=== PATIENT | female | born 1995 | race Caucasian/White ===

== ENCOUNTER 2018-07-09 23:38 | Inpatient (IN) | payer BC, OTHER ==
[~2018-07-09 23:38] MED LIST: Bupivacaine 0.25% 10 ML SDV ONE; Lidocaine 1.5% with EPINEPHrine 1:200,000 5 ML Amp ONE
--- NOTE | 2018-07-10 01:16 | PCM.LDHP ---
L&D History of Present Illness - General Date of Service: 07/10/18 Admit Problem/Dx: Patient Status Order with Admit Dx/Problem 07/10/18 00:08 Patient Status [ADT] Routine Admission Diagnosis/Problem Admission Diagnosis/Problem Gestational hypertension Source of Information: Patient History Limitations: Reports: No Limitations - History of Present Illness Introduction:: Clara Peña is a 23-year-old at 38 weeks 1 day by LMP consistent with early ultrasound who presented for concerns about elevated blood pressures at home. She reports that when she was checking them they weren't to the 140s to 150s/80s to 90s throughout the day. She denies any headaches or vision changes. She denies any spots in her vision. She reports that she has been having some upper abdominal pain that felt like heartburn but did not improve with use of Tums. She was taken to the Tylenol for this pain. She feels like it after she arrived to the hospital for evaluation she started to have some cramping pain. She denies any contractions or pelvic pain prior to arrival to the hospital. She thinks that she may have lost some of her mucous plug earlier today but denies any abnormal vaginal discharge or vaginal bleeding. She reports good movement. She was diagnosed with a urinary tract infection and 07/06/2018 and was started on Macrobid. She took her last dose of Macrobid in the evening of 07/09/2018. Timing/Duration: Reports: gradual onset (Cramping pain while she is in the hospital), intermittent (Elevated blood pressures at home) Location, : Reports: Pelvic Quality: Reports: Pressure Severity: Mild Improves with: Reports: None Worsens with: Reports: None Associated Symptoms: Denies: vaginal bleeding, vaginal discharge, vaginal fluid Present Illness Comments:: Clara Peña is a 23-year-old at 38 weeks 1 day by LMP consistent with early ultrasound who is had routine care with Dr. Ruffin starting at 21 weeks gestational age. Prior to that she had routine care in [place] starting at 10 weeks gestational age. She denies any significant problems with the but did have some concerns about possible large in the 97th to the 98th percentile on ultrasounds that were done in early June. labs Blood type: A+ Antibody screen: Negative First trimester hematocrit/hemoglobin: 37.5%/12.8 Platelets: 279 Pap smear: Negative Urine culture: Escherichia coli UTI on 01/23/2018 and treated Rubella status: Immune Hepatitis B surface antigen: [Negative] RPR: [Negative] HIV: [Negative] Gonorrhea: [Negative] Chlamydia: [Negative] Anatomy ultrasound: Normal ultrasound, anterior placenta One hour glucose tolerance test: 159 Second trimester hematocrit/hemoglobin: 34.7/11.6 Platelets: 324 Three-hour glucose tolerance test: Fasting 111, 1 hour 131, 2 hour 88, 3 hour 81 GBS status: Negative Her has been complicated by: * Gestational hypertension diagnosed at today's OB evaluation * Migraine headaches in * Possible macrosomia with measuring in the 97th to the 98th percentile on recent ultrasounds with most recent ultrasound done on 06/27/2018 measuring 3374 g (60th percentile) * Obesity [] - Related Data Allergies/Adverse Reactions: Allergies Allergy/AdvReac Type Severity Reaction Status Date / Time No Known Allergies Allergy Verified 07/09/18 23:49 Home Medications: Home Meds Ferrous Sulfate [Iron] 325 mg PO DAILY 07/09/18 [History] Pnv No.122/Iron/Folic Acid [ Multi Tablet] 1 each PO DAILY 07/09/18 [ History] Past Medical History HEENT History: Reports: None Gastrointestinal History: Reports: Other (See Below) Other Gastrointestinal History: heartburn during [employer] History: Reports: Hematologic History: Reports: Anemia Other Hematologic History: during - Past Surgical History HEENT Surgical History: Reports: Oral Surgery Female Surgical History: Reports: Breast Reduction Social & Family History - Family History Cardiac: Reports: Hypertension - Tobacco Use Smoking Status *Q: Never Smoker - Tobacco Core Measures Tobacco Use/Smoking Within Last 30 Days: No Smokeless Tobacco Use in Last 30 Days: No - Alcohol Use Alcohol Use History: No - Recreational Drug Use Recreational Drug Use: No Drug Use in Last 12 Months: No - Living Situation & Occupation Living situation: Reports: , with Spouse H&P Review of Systems - Review of Systems: Review Of Systems: See Below General: Denies: Fever, Chills HEENT: Denies: Headaches, Post Nasal Drip, Sinus Congestion, Sore Throat, Visual Changes Pulmonary: Denies: Shortness of Breath, Wheezing, Cough Cardiovascular: Denies: Chest Pain, Palpitations Gastrointestinal: Reports: Abdominal Pain (Mild upper abdominal pain). Denies: Constipation, Diarrhea, Nausea, Vomiting Genitourinary: Denies: Dysuria, Frequency, Burning, Pain, Urgency Musculoskeletal: Reports: Back Pain (And hip pain of ) Skin: Denies: Rash, Lesions Psychiatric: Denies: Depression, Anxiety Hematologic/Lymphatic: Denies: Anemia L&D Exam - Exam Exam: See Below - Vital Signs Vital Signs: Last Vital Signs Temp 36.5 C 07/10/18 00:08 Pulse 123 H 07/10/18 00:08 Resp 16 07/10/18 00:08 BP 137/89 07/10/18 00:08 Pulse Ox Weight: 120.928 kg - OB Specific Contraction Duration (sec): 0 Contraction Frequency (min): Irritability Contraction Intensity: Irritability Movement: Active Heart Tones: Present Heart Tones per Min: 135 (+15 x 15 accelerations, no decelerations) Heart Rate (FHR) Variability: Moderate (6-25 bmp) Presentation: Vertex Estimated Weight: 8-8.5 pounds by Jeison's - Coats Score Coats Score Cervix Position: Anterior Coats Score Consistency: Soft Coats Score Effacement: 31-50% (50%) Coats Score Dilation: 1-2 cm (2 cm) Coats Score 's Station: -3 Coats Score Total: 6 - Exam General: Alert, Oriented HEENT: Conjunctiva Clear, EOMI Neck: Supple, Trachea Midline Lungs: Clear to Auscultation, Normal Respiratory Effort GI/Abdominal Exam: Normal Bowel Sounds, Soft, Non-Tender, No Distention, Other ( Gravid). No: Guarding, Rigid, Rebound Genitourinary: Normal external exam, Cervical dilitation (Cervix dilated to 2 cm , 16 Kosovan Miranda bulb inserted through the cervix manually and filled with 50 mL of sterile water) Back Exam: Normal Inspection, Full Range of Motion Extremities: Normal Inspection, No Pedal Edema Skin: Warm, Dry, Intact Psychiatric: Alert, Normal Affect, Normal Mood - Patient Data Lab Results Last 24 hrs: Laboratory Results - last 24 hr 07/10/18 07/10/18 Range/Units 00:40 00:40 WBC 9.24 (3.98-10.04) K/mm3 RBC 4.18 (3.98-5.22) M/mm3 Hgb 11.1 L (11.2-15.7) gm/L Hct 34.4 (34.1-44.9) % MCV 82.3 (79.4-94.8) fl MCH 26.6 (25.6-32.2) pg MCHC 32.3 (32.2-35.5) g/dl RDW Std Deviation 39.6 (36.4-46.3) fL Plt Count 245 (182-369) K/mm3 MPV 10.7 (9.4-12.3) fl Neut % (Auto) 67.2 (34.0-71.1) % Lymph % (Auto) 22.2 (19.3-51.7) % Frio % (Auto) 9.6 (4.7-12.5) % Eos % (Auto) 0.5 L (0.7-5.8) Baso % (Auto) 0.3 (0.1-1.2) % Neut # (Auto) 6.20 H (1.56-6.13) K/mm3 Lymph # (Auto) 2.05 (1.18-3.74) K/mm3 Frio # (Auto) 0.89 H (0.24-0.36) K/mm3 Eos # (Auto) 0.05 (0.04-0.36) K/mm3 Baso # (Auto) 0.03 (0.01-0.08) K/mm3 Sodium 139 (136-145) mEq/L Potassium 4.2 (3.5-5.1) mEq/L Chloride 106 (98-107) mEq/L Carbon Dioxide 22 (21-32) mEq/L Anion Gap 15.2 H (5-15) BUN 15 (7-18) mg/dL Creatinine 0.8 (0.55-1.02) mg/dL Est Cr Clr Drug Dosing 106.36 mL/min Estimated GFR (MDRD) > 60 (>60) mL/min BUN/Creatinine Ratio 18.8 H (14-18) Glucose 90 (74-106) mg/dL Calcium 9.2 (8.5-10.1) mg/dL Total Bilirubin 0.2 (0.2-1.0) mg/dL AST 13 L (15-37) U/L ALT 11 L (14-59) U/L Alkaline Phosphatase 162 H (46-116) U/L Total Protein 6.1 L (6.4-8.2) g/dl Albumin 2.1 L (3.4-5.0) g/dl Globulin 4.0 gm/dL Albumin/Globulin Ratio 0.5 L (1-2) Result Diagrams: 07/10/18 00:40 07/10/18 00:40 - Problem List (1) 38 weeks gestation of SNOMED Code(s): 94244055 ICD Code: Z3A.38 - 38 WEEKS GESTATION OF Status: Acute Current Visit: Yes (2) Gestational [-induced] hypertension without significant proteinuria , unspecified trimester SNOMED Code(s): 97881207 ICD Code: O13.9 - GESTATIONAL HTN W/O SIGNIFICANT PROTEINURIA, UNSP TRIMESTER Status: Acute Current Visit: Yes (3) History of migraine headaches SNOMED Code(s): 225126482 ICD Code: Z86.69 - PERSONAL HISTORY OF DIS OF THE NERVOUS SYS AND SENSE ORGANS Status: Acute Current Visit: Yes Problem List Initiated/Reviewed/Updated: Yes Orders Last 24hrs: Active Orders 24 hr Category Date Time Status Patient Status Manage Transfer [TRANSFER] Routine ADT 07/10/18 01:10 Ordered Patient Status [ADT] Routine ADT 07/10/18 00:08 Active Vital Signs [RC] PER UNIT ROUTINE Care 07/10/18 00:08 Active PROTEIN/CREATININE RATIO,URINE [URCHEM] Stat Lab 07/10/18 00:16 Ordered Resuscitation Status Routine Resus Stat 07/10/18 00:08 Ordered Assessment/Plan Comment:: Refer to observation for induction of labor in the setting of gestational hypertension 16 Kosovan Miranda bulb placed manually through the cervix and filled with 50 mL of sterile water. Mother and baby tolerated without difficulty Start induction of labor with Cytotec 25 mcg vaginally now and every 4 hours Intermittent monitoring while on Cytotec with monitoring for 30 minutes after placement of Cytotec and may ambulate as tolerated with category [address] IV and have Lactated Ringer's at 125 ml/hr if not tolerating regular diet May have regular diet while on Cytotec induction Activity as tolerated May have epidural as desired Plans to breast-feed after delivery Anticipate vaginal delivery unless otherwise indicated Blas Mari M.D. 1:31 AM 07/10/2018
[2018-07-10] MEDS ORDERED: Misoprostol 25 MCG (1/4 of 100 MCG) Tab PO PRN (01:45)
[2018-07-10] MEDS ORDERED: Sodium Chloride 0.9% 10 ML Syringe FLUSH PRN (01:45)
[2018-07-10] MEDS ORDERED: Nalbuphine 20 MG/ML 1 ML Syringe IVPUSH PRN (01:45)
[2018-07-10] MEDS ORDERED: Acetaminophen 325 MG Tab PO PRN ×2 (01:45→17:36)
[2018-07-10] MEDS ORDERED: Oxytocin/Lactated Ringers 10 UNIT/1,000 ML BAG IV SCH ×2 (01:45→10:30)
[2018-07-10] MEDS: Lactated Ringers 1,000 ML IV SCH ×4 (06:20→14:44)
[2018-07-10] MEDS ORDERED: diphenhydrAMINE 50 MG/ML SDV IVPUSH PRN (07:15)
[2018-07-10] MEDS ORDERED: Ondansetron 4 MG/2 ML SDV IVPUSH PRN (07:15)
[2018-07-10] MEDS ORDERED: fentaNYL 100 MCG/2 ML SDV EPIDUR PRN ×2 (07:15→14:29)
[2018-07-10] MEDS ORDERED: ePHEDrine 50 MG/ML SDV IVPUSH PRN (07:15)
[2018-07-10] MEDS: fentaNYL/Bupivacaine-NS 2 MCG/ML-0.125%/PF 100 ML Bag EP SCH ×2 (07:57→13:40)
[2018-07-10] MEDS ORDERED: Nitrofurantoin Monohydrate/Macrocrystalline 100 MG Cap PO SCH ×2 (09:00→21:00)
--- NOTE | 2018-07-10 09:22 | PCM.PREANE ---
Preanesthetic Assessment - Anesthesia/Transfusion/Family Hx Anesthesia History: Prior Anesthesia Without Reaction Family History of Anesthesia Reaction: No Transfusion History: No Prior Transfusion(s) - Review of Systems General: No Symptoms Pulmonary: No Symptoms Cardiovascular: No Symptoms Gastrointestinal: Other (GERD) Neurological: No Symptoms Other: Reports: None (Obesity BMI 41), Depression, Anxiety - Physical Assessment O2 Sat by Pulse Oximetry: 98 Respiratory Rate: 16 Vital Signs: Last Vital Signs Temp 36.5 C 07/10/18 00:08 Pulse 123 H 07/10/18 00:08 Resp 16 07/10/18 00:08 BP 137/89 07/10/18 00:08 Pulse Ox Height: 1.7 m Weight: 120.928 kg ASA Class: 2 Mental Status: Alert & Oriented x3 Dentition: Reports: Normal Dentition Thyro-Mental Finger Breadths: 3 Mouth Opening Finger Breadths: 3 ROM/Head Extension: Full Lungs: Clear to Auscultation, Normal Respiratory Effort Cardiovascular: Regular Rate, Regular Rhythm - Lab Values: Laboratory Last Values WBC 9.24 K/mm3 (3.98-10.04) 07/10/18 00:40 RBC 4.18 M/mm3 (3.98-5.22) 07/10/18 00:40 Hgb 11.1 gm/L (11.2-15.7) L 07/10/18 00:40 Hct 34.4 % (34.1-44.9) 07/10/18 00:40 MCV 82.3 fl (79.4-94.8) 07/10/18 00:40 MCH 26.6 pg (25.6-32.2) 07/10/18 00:40 MCHC 32.3 g/dl (32.2-35.5) 07/10/18 00:40 RDW Std Deviation 39.6 fL (36.4-46.3) 07/10/18 00:40 Plt Count 245 K/mm3 (182-369) 07/10/18 00:40 MPV 10.7 fl (9.4-12.3) 07/10/18 00:40 Neut % (Auto) 67.2 % (34.0-71.1) 07/10/18 00:40 Lymph % (Auto) 22.2 % (19.3-51.7) 07/10/18 00:40 Dubois % (Auto) 9.6 % (4.7-12.5) 07/10/18 00:40 Eos % (Auto) 0.5 (0.7-5.8) L 07/10/18 00:40 Baso % (Auto) 0.3 % (0.1-1.2) 07/10/18 00:40 Neut # (Auto) 6.20 K/mm3 (1.56-6.13) H 07/10/18 00:40 Lymph # (Auto) 2.05 K/mm3 (1.18-3.74) 07/10/18 00:40 [place]ois # (Auto) 0.89 K/mm3 (0.24-0.36) H 07/10/18 00:40 Eos # (Auto) 0.05 K/mm3 (0.04-0.36) 07/10/18 00:40 Baso # (Auto) 0.03 K/mm3 (0.01-0.08) 07/10/18 00:40 Sodium 139 mEq/L (136-145) 07/10/18 00:40 Potassium 4.2 mEq/L (3.5-5.1) 07/10/18 00:40 Chloride 106 mEq/L (98-107) 07/10/18 00:40 Carbon Dioxide 22 mEq/L (21-32) 07/10/18 00:40 Anion Gap 15.2 (5-15) H 07/10/18 00:40 BUN 15 mg/dL (7-18) 07/10/18 00:40 Creatinine 0.8 mg/dL (0.55-1.02) 07/10/18 00:40 Est Cr Clr Drug Dosing 106.36 mL/min 07/10/18 00:40 Estimated GFR (MDRD) > 60 mL/min (>60) 07/10/18 00:40 BUN/Creatinine Ratio 18.8 (14-18) H 07/10/18 00:40 Glucose 90 mg/dL (74-106) 07/10/18 00:40 Calcium 9.2 mg/dL (8.5-10.1) 07/10/18 00:40 Total Bilirubin 0.2 mg/dL (0.2-1.0) 07/10/18 00:40 AST 13 U/L (15-37) L 07/10/18 00:40 ALT 11 U/L (14-59) L 07/10/18 00:40 Alkaline Phosphatase 162 U/L (46-116) H 07/10/18 00:40 Total Protein 6.1 g/dl (6.4-8.2) L 07/10/18 00:40 Albumin 2.1 g/dl (3.4-5.0) L 07/10/18 00:40 Globulin 4.0 gm/dL 07/10/18 00:40 Albumin/Globulin Ratio 0.5 (1-2) L 07/10/18 00:40 - Allergies Allergies/Adverse Reactions: Allergies Allergy/AdvReac Type Severity Reaction Status Date / Time No Known Allergies Allergy Verified 07/09/18 23:49 - Acknowledgements Anesthesia Type Planned: Epidural Pt an Appropriate Candidate for the Planned Anesthesia: Yes Alternatives and Risks of Anesthesia Discussed w Pt/Guardian: Yes Pt/Guardian Understands and Agrees with Anesthesia Plan: Yes PreAnesthesia Questionnaire HEENT History: Reports: None Gastrointestinal History: Reports: GERD Other Gastrointestinal History: heartburn during Genitourinary History: Reports: UTI, Recurrent [employer] History: Reports: Endometriosis, Neurological History: Reports: Migraines Endocrine/Metabolic History: Reports: Obesity/BMI 30+ Hematologic History: Reports: Anemia Other Hematologic History: during - Infectious Disease History Infectious Disease History: Reports: Human Papilloma Virus (HPV) - Past Surgical History HEENT Surgical History: Reports: Oral Surgery Female Surgical History: Reports: Breast Reduction - SUBSTANCE USE Smoking Status *Q: Never Smoker Recreational Drug Use History: No - HOME MEDS Home Medications: Home Meds Ferrous Sulfate [Iron] 325 mg PO DAILY 07/09/18 [History] Pnv No.122/Iron/Folic Acid [ Multi Tablet] 1 each PO DAILY 07/09/18 [ History] Nitrofurantoin Monohyd/M-Cryst [Macrobid 100 mg Capsule] 100 mg PO BID 07/10/18 [History] - CURRENT (IN HOUSE) MEDS Current Meds: Current Medications Acetaminophen (Tylenol) 650 mg PO Q6H PRN PRN Reason: Pain (Mild 1-3) and fever Diphenhydramine HCl (Benadryl) 25 mg IVPUSH Q6H PRN PRN Reason: Pruritis Ephedrine Sulfate (Ephedrine Sulfate) 5 mg IVPUSH ASDIRECTED PRN PRN Reason: Hypotension Fentanyl (Sublimaze) 100 mcg EPIDUR ONETIME PRN PRN Reason: Pain Last Admin: 07/10/18 07:57 Dose: 100 mcg Fentanyl/Bupivacaine HCl (Eukinqlh-Iglwz-Hx 2 Mcg/Ml-0.125%) 100 ml EP ASDIRECTED [facility] Last Admin: 07/10/18 07:57 Dose: 100 ml Lactated Ringer's (Ringers, Lactated) 1,000 mls @ 100 mls/hr IV ASDIRECTED [facility] Last Admin: 07/10/18 09:02 Dose: 999 mls/hr Oxytocin/Lactated Ringer's (Pitocin In Lr 10 Units/1,000 Ml) 10 unit in 1,000 mls @ 100 mls/hr IV .CONTINUOUS [facility] Oxytocin 10 unit/ Lactated (Ringer's) 1,001 mls @ 12.01 mls/hr IV TITRATE ANEUDY; Protocol Misoprostol (Cytotec) 25 mcg PO Q4H PRN PRN Reason: cervical ripening Last Admin: 07/10/18 02:02 Dose: 25 mcg Nalbuphine HCl (Nubain) 10 mg IVPUSH Q2H PRN PRN Reason: pain Nitrofurantoin Macrocrystals (Macrobid) 100 mg PO BID [facility] Stop: 07/11/18 21:01 Last Admin: 07/10/18 08:15 Dose: 100 mg Ondansetron HCl (Zofran) 4 mg IVPUSH ONETIME PRN PRN Reason: Nausea/Vomiting Sodium Chloride (Saline Flush) 10 ml FLUSH ASDIRECTED PRN PRN Reason: Keep Vein Open
--- NOTE | 2018-07-10 10:37 | PCM.PNLD ---
Labor Progress Note - VS & Meds Vital Signs: Last Vital Signs Temp 36.5 C 07/10/18 00:08 Pulse 123 H 07/10/18 00:08 Resp 16 07/10/18 09:22 BP 137/89 07/10/18 00:08 Pulse Ox 98 07/10/18 09:22 Active Medications: Current Medications Acetaminophen (Tylenol) 650 mg PO Q6H PRN PRN Reason: Pain (Mild 1-3) and fever Diphenhydramine HCl (Benadryl) 25 mg IVPUSH Q6H PRN PRN Reason: Pruritis Ephedrine Sulfate (Ephedrine Sulfate) 5 mg IVPUSH ASDIRECTED PRN PRN Reason: Hypotension Fentanyl (Sublimaze) 100 mcg EPIDUR ONETIME PRN PRN Reason: Pain Last Admin: 07/10/18 07:57 Dose: 100 mcg Fentanyl/Bupivacaine HCl (Ldwafpxk-Wwfbv-Cq 2 Mcg/Ml-0.125%) 100 ml EP ASDIRECTED [facility] Last Admin: 07/10/18 07:57 Dose: 100 ml Lactated Ringer's (Ringers, Lactated) 1,000 mls @ 100 mls/hr IV ASDIRECTED [facility]EUD[facility] Last Admin: 07/10/18 09:02 Dose: 999 mls/hr Oxytocin/Lactated Ringer's (Pitocin In Lr 10 Units/1,000 Ml) 10 unit in 1,000 mls @ 100 mls/hr IV .CONTINUOUS ANEUD[facility] Oxytocin/Lactated Ringer's (Pitocin In Lr 10 Units/1,000 Ml) 10 unit in 1,000 mls @ 12 mls/hr IV TITRATE ANEUDY; Protocol Misoprostol (Cytotec) 25 mcg PO Q4H PRN PRN Reason: cervical ripening Last Admin: 07/10/18 02:02 Dose: 25 mcg Nalbuphine HCl (Nubain) 10 mg IVPUSH Q2H PRN PRN Reason: pain Nitrofurantoin Macrocrystals (Macrobid) 100 mg PO BID [facility]EUD[facility] Stop: 07/11/18 21:01 Last Admin: 07/10/18 08:15 Dose: 100 mg Ondansetron HCl (Zofran) 4 mg IVPUSH ONETIME PRN PRN Reason: Nausea/Vomiting Sodium Chloride (Saline Flush) 10 ml FLUSH ASDIRECTED PRN PRN Reason: Keep Vein Open Discontinued Medications Oxytocin 10 unit/ Lactated (Ringer's) 1,001 mls @ 12.01 mls/hr IV TITRATE ANEUDY; Protocol - Uterine Contractions Uterine Monitoring Mode: External [place] Contraction Frequency (min): 2-3 but difficult to monitor Contraction Duration (sec): 60-75 Contraction Intensity: Irritability - Monitoring Monitor Mode: Doppler/Auscultation Heart Rate (FHR) Per Doppler: 145 Heart Rate (FHR) Variability: Moderate (6-25 bmp) Accelerations: Present, 15x15 Decelerations: Early, Intermittent (<50% x 20 min) Strip Review: Category I - Vaginal Exam Dilation (cm): 6 Effacement (Percent): 90 Station: -1 Cervical Position: Anterior Sterile Vaginal Exam Performed By: Blas Mari Vaginal Exam Comment: Artificial rupture membranes performed with [place] at time of cervical exam with return of clear fluid. Mother and baby tolerated procedure without difficulty. - Labor Progress (Free Text) Labor Progress: Patient doing well. No concerns at this time. Patient given epidural shortly prior to cervical exam. Artificial rupture of membranes performed with return of clear fluid. Patient continues to have occasional mild range blood pressures without severe range blood pressures. Continue to monitor vital signs closely for any signs of severe range blood pressures or preeclampsia with severe features. Continuous monitoring on Pitocin Continue Pitocin for induction of labor Anticipate vaginal delivery unless otherwise indicated. Blas Mari M.D. 10:39 AM 07/10/2018
[2018-07-10] MEDS ORDERED: fentaNYL 100 MCG/2 ML SDV ONE (14:28)
[2018-07-10] MEDS ORDERED: Lanolin 100% Cream 7 GM Tube TOP PRN (17:36)
[2018-07-10] MEDS ORDERED: Benzocaine/Menthol 20%-0.5% Spray 56 GM Canister TOP PRN (17:36)
[2018-07-10] MEDS ORDERED: Witch Hazel Medicated Pads 100/Jar TOP PRN (17:36)
--- NOTE | 2018-07-10 17:36 | PCM.SN ---
- Free Text/Narrative Note: Clara is a 23-year-old 1 now para 1001 when she was admitted early on for borderline elevated blood pressures most probably consistent with gestational hypertension. She is at 38-1/7 weeks gestational age upon admission. She was started labor by induction with a balloon catheter in the cervix and Cytotec. She was switched to Pitocin later on the a.m. of 07/10/2018. She progressed relatively quickly and by approximately 1500 hrs. became completely dilated. She pushed for approximately one hour and delivered a viable , zarate, 8 pound 14.5 ounces (4040 g) male in a right occiput anterior position. Baby was 21 inches in length, had Apgars of 8 and 9 and liver at 1612 hrs. on 07/10/2018. Baby was placed on mom's abdomen. Nose and mouth were bulb suctioned. IV Pitocin was started to facilitate increase uterine tone and decrease likelihood of bleeding. Cord blood was obtained. The placenta then delivered at 1616 hrs. in a Kenny presentation. It appeared intact, complete and was discarded per patient desire. Patient was noted to have no perineal lacerations and only superficial abrasions on the medial aspect of both the left and the right labia minora. She plans to breast-feed. Estimated blood loss was 200 mL. Condition: Good
[2018-07-11] MEDS ORDERED: [UNRECOGNIZED DRUG - REMARK] PO SCH (09:00)
[2018-07-11] MEDS: Nitrofurantoin Monohydrate/Macrocrystalline 100 MG Cap PO SCH ×2 (11:12→20:12)
[2018-07-11] MEDS: Ibuprofen 600 MG Tab PO PRN ×2 (16:38→20:12)
[2018-07-11] MEDS: Docusate Sodium 100 MG Cap PO PRN (16:39)
[2018-07-12] MEDS: Ibuprofen 600 MG Tab PO PRN (05:59)
[2018-07-12] MEDS: Docusate Sodium 100 MG Cap PO PRN (06:00)
--- NOTE | 2018-07-12 08:27 | PCM.SN ---
- Free Text/Narrative Note: Postdated note for 07/11/2018: Patient is doing well in the period. Minimal lochia, voiding well, ambulated without problems. Nursing without concerns. Patient is afebrile, vital signs are stable Abdomen is flat, soft, uterus is below the umbilicus and is firm and nontender. Legs are nontender. Assessment: recovery going well. Plan: Routine care. Patient be discharged home within the next 24-48 hours.
--- NOTE | 2018-07-12 08:29 | PCM.DCSUM1 ---
Discharge Summary - Hospital Course Free Text/Narrative:: Clara is a 23-year-old 1 now para 1001 when she was admitted early on for borderline elevated blood pressures most probably consistent with gestational hypertension. She is at 38-1/7 weeks gestational age upon admission. She was started labor by induction with a balloon catheter in the cervix and Cytotec. She was switched to Pitocin later on the a.m. of 07/10/2018. She progressed relatively quickly and by approximately 1500 hrs. became completely dilated. She pushed for approximately one hour and delivered a viable , zarate, 8 pound 14.5 ounces (4040 g) male infant in a right occiput anterior position. Baby was 21 inches in length, had Apgars of 8 and 9 and liver at 1612 hrs. on 07/10/2018. Baby was placed on mom's abdomen. Nose and mouth were bulb suctioned. IV Pitocin was started to facilitate increase uterine tone and decrease likelihood of bleeding. Cord blood was obtained. The placenta then delivered at 1616 hrs. in a Kenny presentation. It appeared intact, complete and was discarded per patient desire. Patient was noted to have no perineal lacerations and only superficial abrasions on the medial aspect of both the left and the right labia minora. She plans to breast-feed. Estimated blood loss was 200 mL. patient is nursing well. She has minimal lochia, is voiding well and is ambulating without concerns. She is desiring discharge home today. Condition : Good Diagnosis: Stroke: No - Discharge Data Discharge Date: 07/12/18 Discharge Disposition: Home, Self-Care 01 Condition: Good - Patient Instructions Diet: Regular Diet as Tolerated (Nursing diet with increased calories and calcium as recommended) Activity: As Tolerated (No intercourse or tampons until bleeding resolves) Driving: May Drive Today Notify Provider of: Fever, Increased Pain, Swelling and Redness, Nausea and/or Vomiting - Discharge Plan Home Medications: Home Meds Ferrous Sulfate [Iron] 325 mg PO DAILY 07/09/18 [History] Pnv No.122/Iron/Folic Acid [ Multi Tablet] 1 each PO DAILY 07/09/18 [ History] Nitrofurantoin Monohyd/M-Cryst [Macrobid 100 mg Capsule] 100 mg PO BID 07/10/18 [History] Acetaminophen [Tylenol] 650 mg PO Q4H PRN tablet 07/12/18 [Rx] Ibuprofen [Motrin] 600 mg PO Q4H PRN tablet 07/12/18 [Rx] Referrals: Tyrese Ruffin MD [Primary Care Provider] - (Return to clinicDr. Ruffin2 weeks.) - Discharge Summary/Plan Comment DC Time >30 min.: No Discharge Summary/Plan Comment: Discharge instructions: 1. Discharge home 2. Diet, activity and follow-up discussed with patient. Recommend nursing diet with increased calories and calcium. 3. Precautions given concern increased pain, bleeding, temperature, signs/ symptoms of DVT/PE. 4. Medications per home medication was printed, discussed with and given to the patient. 5. Return to clinic-Dr. Ruffin[facility] in 2 weeks. Diagnosis: Term -delivered. Patient is to monitor blood pressures once per day until seen back in clinic. She is to call if greater than 150/100 on 3 consecutive evaluations done one hour apart. Condition: Good - Patient Data Vitals - Most Recent: Last Vital Signs Temp 36.9 C 07/12/18 02:53 Pulse 76 07/12/18 02:53 Resp 16 07/12/18 02:53 BP 116/72 07/12/18 02:53 Pulse Ox 97 07/12/18 02:53 Weight - Most Recent: 120.928 kg Med Orders - Current: Current Medications Acetaminophen (Tylenol) 650 mg PO Q4H PRN PRN Reason: mild pain or fever Last Admin: 07/11/18 09:11 Dose: 650 mg Benzocaine/Menthol (Dermoplast Pain Relief Sargent) 0 gm TOP ASDIRECTED PRN PRN Reason: Perineal Comfort Measure Last Admin: 07/10/18 20:51 Dose: 1 can Docusate Sodium (Colace) 100 mg PO BID PRN PRN Reason: Constipation Last Admin: 07/12/18 06:00 Dose: 100 mg Emollient Ointment (Lansinoh Hpa) 0 gm TOP ASDIRECTED PRN PRN Reason: Sore Nipples Ibuprofen (Motrin) 600 mg PO Q4H PRN PRN Reason: Mild pain or fever Last Admin: 07/12/18 05:59 Dose: 600 mg Nitrofurantoin Macrocrystals (Macrobid) 100 mg PO BID ANEUDY Stop: 07/12/18 09:01 Last Admin: 07/11/18 20:12 Dose: 100 mg Witch Steph (Tucks) 1 pad TOP ASDIRECTED PRN PRN Reason: Hemorrhoid pain Last Admin: 07/10/18 20:50 Dose: 1 jar Discontinued Medications Acetaminophen (Tylenol) 650 mg PO Q6H PRN PRN Reason: Pain (Mild 1-3) and fever Bupivacaine HCl (Sensorcaine-Mpf 0.25%) 10 ml .ROUTE .STK-MED ONE Stop: 07/09/18 22:01 Diphenhydramine HCl (Benadryl) 25 mg IVPUSH Q6H PRN PRN Reason: Pruritis Ephedrine Sulfate (Ephedrine Sulfate) 5 mg IVPUSH ASDIRECTED PRN PRN Reason: Hypotension Fentanyl (Sublimaze) 100 mcg EPIDUR ONETIME PRN PRN Reason: Pain Last Admin: 07/10/18 07:57 Dose: 100 mcg Fentanyl (Sublimaze) 100 mcg EPIDUR ONETIME PRN PRN Reason: Pain Fentanyl (Sublimaze) Confirm Administered Dose 100 mcg .ROUTE .STK-MED ONE Stop: 07/10/18 14:29 Last Admin: 07/10/18 14:37 Dose: 100 mcg Fentanyl/Bupivacaine HCl (Yhicbmpa-Tzkyg-Ow 2 Mcg/Ml-0.125%) 100 ml EP ASDIRECTED ANEUDY Last Admin: 07/10/18 13:40 Dose: 100 ml Lactated Ringer's (Ringers, Lactated) 1,000 mls @ 100 mls/hr IV ASDIRECTED [facility] Last Admin: 07/10/18 14:44 Dose: 999 mls/hr Oxytocin/Lactated Ringer's (Pitocin In Lr 10 Units/1,000 Ml) 10 unit in 1,000 mls @ 100 mls/hr IV .CONTINUOUS ANEUDY Oxytocin 10 unit/ Lactated (Ringer's) 1,001 mls @ 12.01 mls/hr IV TITRATE ANEUDY; Protocol Oxytocin/Lactated Ringer's (Pitocin In Lr 10 Units/1,000 Ml) 10 unit in 1,000 mls @ 12 mls/hr IV TITRATE ANEUDY; Protocol Last Admin: 07/10/18 10:20 Dose: 2 munits/min, 12 mls/hr Lidocaine/Epinephrine (Xylocaine-Mpf 1.5% W/Epinephrine 1:200,000) 5 ml .ROUTE .STK-MED ONE Stop: 07/09/18 22:01 Misoprostol (Cytotec) 25 mcg PO Q4H PRN PRN Reason: cervical ripening Last Admin: 07/10/18 02:02 Dose: 25 mcg Nalbuphine HCl (Nubain) 10 mg IVPUSH Q2H PRN PRN Reason: pain Nitrofurantoin Macrocrystals (Macrobid) 100 mg PO BID [facility] Stop: 07/11/18 21:01 Last Admin: 07/10/18 08:15 Dose: 100 mg Nitrofurantoin Macrocrystals (Macrobid) 100 mg PO BID [facility] Non-Formulary Medication (Pnv No.122/Iron/Folic Acid [ Multi Tablet]) 1 each PO DAILY [facility] Ondansetron HCl (Zofran) 4 mg IVPUSH ONETIME PRN PRN Reason: Nausea/Vomiting Sodium Chloride (Saline Flush) 10 ml FLUSH ASDIRECTED PRN PRN Reason: Keep Vein Open
[2018-07-12] MEDS: Nitrofurantoin Monohydrate/Macrocrystalline 100 MG Cap PO SCH (09:38)
== END 2018-07-12 11:00 | disposition home or self-care (01) | DRG 560 ==
LOC: JD.OB 23:38 → JD.OBCHECK 23:38 → JD.OB 07-10 01:21 → OBSVTOIN 07-10 16:12 → JD.OB 07-10 16:13
PROVIDERS: ADMIT Obstetrics & Gynecology; ATTEND Obstetrics & Gynecology
PROC: 0U7C7ZZ Dilation of Cervix, Via Natural or Artificial Opening (ICD-10-PCS; principal; 2018-07-10)
PROC: 3E033VJ Introduction of Other Hormone into Peripheral Vein, Percutaneous Approach (ICD-10-PCS; principal; 2018-07-10)
PROC: 6A550ZT Pheresis of Cord Blood Stem Cells, Single (ICD-10-PCS; principal; 2018-07-10)
PROC: 10E0XZZ Delivery of Products of Conception, External Approach (ICD-10-PCS; principal; 2018-07-10)
PROC: 3E0P7VZ Introduction of Hormone into Female Reproductive, Via Natural or Artificial Opening (ICD-10-PCS; principal; 2018-07-10)
PROC: 10907ZC Drainage of Amniotic Fluid, Therapeutic from Products of Conception, Via Natural or Artificial Opening (ICD-10-PCS; principal; 2018-07-10)
PROC: 00HU33Z Insertion of Infusion Device into Spinal Canal, Percutaneous Approach (ICD-10-PCS; 2018-07-10)
PROC: 3E0R3BZ Introduction of Anesthetic Agent into Spinal Canal, Percutaneous Approach (ICD-10-PCS; 2018-07-10)
DX: O13.4 Gestational [pregnancy-induced] hypertension without significant proteinuria, complicating childbirth (principal); O36.63X0 Maternal care for excessive fetal growth, third trimester, not applicable or unspecified; O99.354 Diseases of the nervous system complicating childbirth; G43.909 Migraine, unspecified, not intractable, without status migrainosus; O99.214 Obesity complicating childbirth; E66.9 Obesity, unspecified; Z3A.38 38 weeks gestation of pregnancy; Z37.0 Single live birth; O99.344 Other mental disorders complicating childbirth; F41.9 Anxiety disorder, unspecified; F32.9 Major depressive disorder, single episode, unspecified; O99.62 Diseases of the digestive system complicating childbirth; K21.9 Gastro-esophageal reflux disease without esophagitis
CPT/HCPCS: 36415; 51701; 59025; 59409; 80053; 82570; 84156; 85025; 86592; A9270-GY; J2590; J3010; J3490; J7120

== ENCOUNTER 2019-02-26 18:38 | Emergency (ER) | payer OTHER, BC ==
--- NOTE | 2019-02-26 19:14 | EDM.PDOC ---
ED HPI GENERAL MEDICAL PROBLEM - General Chief Complaint: VP TREASURER Problem Stated Complaint: BLEEDING VAGINAL 14 DAYS Time Seen by Provider: 02/26/19 18:46 Source of Information: Reports: Patient, RN Notes Reviewed History Limitations: Reports: No Limitations - History of Present Illness INITIAL COMMENTS - FREE TEXT/NARRATIVE: Patient is a 23 year old female who presents to the ED for the evaluation of vaginal bleeding 14 days. Patient notes that she started her menstrual period 14 days ago, this was regular for her, however she has continued to bleed for 14 days. She states that the flow is normal, not a heavy and no clots noted. She states that she does have some occasional cramping but nothing out of the ordinary for her regular periods. She went to the walk-in clinic for evaluation , however they sent her here, as they stated they were not able to do anything for her, and they suggested she follow up with Dr. Ruffin or come to the ER for management. The patient states she is not on any sort of control at this time. She notes that her brother has leukemia and she is to be his donor and she does not think she is , however she expressed her possible want for being on control due to this fact. - Related Data Allergies Allergy/AdvReac Type Severity Reaction Status Date / Time No Known Allergies Allergy Verified 10/05/18 12:41 CDT Home Meds: Home Meds medroxyPROGESTERone [Provera] 10 mg PO DAILY #10 tab 02/26/19 [Rx] Past Medical History HEENT History: Reports: None Gastrointestinal History: Reports: GERD Other Gastrointestinal History: heartburn during Genitourinary History: Reports: UTI, Recurrent VP TREASURER History: Reports: Endometriosis, Neurological History: Reports: Migraines Endocrine/Metabolic History: Reports: Obesity/BMI 30+ Hematologic History: Reports: Anemia Other Hematologic History: during - Infectious Disease History Infectious Disease History: Reports: Human Papilloma Virus (HPV) - Past Surgical History HEENT Surgical History: Reports: Oral Surgery Female Surgical History: Reports: Breast Reduction Social & Family History - Family History Family Medical History: Noncontributory Cardiac: Reports: Hypertension - Tobacco Use Smoking Status *Q: Never Smoker - Caffeine Use Caffeine Use: Reports: Coffee, Soda - Living Situation & Occupation Living situation: Reports: , with Spouse ED ROS GENERAL - Review of Systems Review Of Systems: See Below Constitutional: Reports: Fever HEENT: Reports: No Symptoms Respiratory: Denies: Shortness of Breath Cardiovascular: Denies: Chest Pain, Lightheadedness Endocrine: Reports: No Symptoms GI/Abdominal: Reports: Abdominal Pain (mild pelvic discomfort/cramping). Denies : Constipation, Diarrhea, Nausea, Vomiting : Reports: Pain (pelvic pain/discomfort/cramping), Other (prolonged vaginal bleeding). Denies: Discharge, Dysuria, Flank Pain, Frequency, Urgency Musculoskeletal: Reports: No Symptoms Skin: Reports: No Symptoms Neurological: Denies: Dizziness Psychiatric: Reports: No Symptoms Hematologic/Lymphatic: Denies: Anemia, Easy Bleeding Immunologic: Reports: No Symptoms ED EXAM, RENAL/ - Physical Exam Exam: See Below Exam Limited By: No Limitations General Appearance: Alert, WD/WN, No Apparent Distress Throat/Mouth: Normal Inspection, Normal Lips, Normal Teeth, Normal Gums, Normal Oropharynx, Normal Voice, No Airway Compromise Head: Atraumatic, Normocephalic Neck: Normal Inspection Respiratory/Chest: No Respiratory Distress, Lungs Clear, Normal Breath Sounds, No Accessory Muscle Use, Chest Non-Tender Cardiovascular: Normal Peripheral Pulses, Regular Rate, Rhythm, No Murmur GI/Abdominal: Normal Bowel Sounds, Soft, Non-Tender, No Distention, No Mass (Female) Exam: Deferred Extremities: Normal Inspection, Normal Capillary Refill Neurological: Alert, Oriented, Normal Cognition, No Motor/Sensory Deficits Psychiatric: Normal Affect, Normal Mood Skin Exam: Warm, Dry, Intact, Normal Color, No Rash Course - Vital Signs Last Recorded V/S: Last Vital Signs Temp 97.4 F 02/26/19 18:48 Pulse 105 H 02/26/19 18:48 Resp 18 02/26/19 18:48 BP 155/93 H 02/26/19 18:48 Pulse Ox 98 02/26/19 18:48 - Orders/Labs/Meds Orders: Active Orders 24 hr Category Date Time Status Influenza Vaccine Charge [RC] .DISCHARGE Care 02/26/19 18:53 Active CULTURE URINE [RM] Stat Lab 02/26/19 20:15 Ordered Pharmacy to Dose - InFluenza V [Pharmacy to Dose - Med 02/26/19 18:52 Once InFluenza Vaccine] 1 each IM ONETIME ONE Medication Orders Influenza Virus Vaccine (Pharmacy To Dose - Influenza Vaccine) 1 each IM ONETIME ONE Stop: 02/26/19 18:53 Labs: Laboratory Tests 02/26/19 02/26/19 02/26/19 Range/Units 19:18 19:18 19:25 WBC 6.01 (3.98-10.04) K/mm3 RBC 4.71 (3.98-5.22) M/mm3 Hgb 13.1 D (11.2-15.7) gm/dl Hct 38.6 (34.1-44.9) % MCV 82.0 (79.4-94.8) fl MCH 27.8 (25.6-32.2) pg MCHC 33.9 (32.2-35.5) g/dl RDW Std Deviation 42.3 (36.4-46.3) fL Plt Count 351 D (182-369) K/mm3 MPV 9.1 L (9.4-12.3) fl Neut % (Auto) 53.0 (34.0-71.1) % Lymph % (Auto) 33.3 (19.3-51.7) % [place] % (Auto) 10.5 (4.7-12.5) % Eos % (Auto) 2.2 (0.7-5.8) Baso % (Auto) 1.0 (0.1-1.2) % Neut # (Auto) 3.19 (1.56-6.13) K/mm3 Lymph # (Auto) 2.00 (1.18-3.74) K/mm3 [place] # (Auto) 0.63 H (0.24-0.36) K/mm3 Eos # (Auto) 0.13 (0.04-0.36) K/mm3 Baso # (Auto) 0.06 (0.01-0.08) K/mm3 Sodium 141 (136-145) mEq/L Potassium 3.8 (3.5-5.1) mEq/L Chloride 104 (98-107) mEq/L Carbon Dioxide 27 (21-32) mEq/L Anion Gap 13.8 (5-15) BUN 13 (7-18) mg/dL Creatinine 1.0 (0.55-1.02) mg/dL Est Cr Clr Drug Dosing 85.09 mL/min Estimated GFR (MDRD) > 60 (>60) mL/min BUN/Creatinine Ratio 13.0 L (14-18) Glucose 98 (74-106) mg/dL Calcium 9.3 (8.5-10.1) mg/dL Total Bilirubin 0.3 (0.2-1.0) mg/dL AST 18 (15-37) U/L ALT 17 (14-59) U/L Alkaline Phosphatase 87 (46-116) U/L Total Protein 8.2 (6.4-8.2) g/dl Albumin 4.1 (3.4-5.0) g/dl Globulin 4.1 gm/dL Albumin/Globulin Ratio 1.0 (1-2) Urine Color Yellow (Yellow) Urine Appearance Slt cloudy H (Clear) Urine pH 6.5 (5.0-8.0) Ur Specific [place] 1.025 (1.005-1.030) Urine Protein Negative (Negative) Urine Glucose (UA) Negative (Negative) Urine Ketones Negative (Negative) Urine Occult Blood 2+ H (Negative) Urine Nitrite Positive H (Negative) Urine Bilirubin Negative (Negative) Urine Urobilinogen 0.2 (0.2-1.0) Ur Leukocyte Esterase Negative (Negative) Urine RBC 5-10 H (0-5) /hpf Urine WBC 0-5 (0-5) /hpf Ur Squamous Epith Cells 5-10 H (0-5) /hpf Urine Bacteria Many H (FEW) /hpf Urine Mucus Few (FEW) /hpf Urine HCG, Qual (NEGATIVE) 02/26/19 Range/Units 19:25 WBC (3.98-10.04) K/mm3 RBC (3.98-5.22) M/mm3 Hgb (11.2-15.7) gm/dl Hct (34.1-44.9) % MCV (79.4-94.8) fl MCH (25.6-32.2) pg MCHC (32.2-35.5) g/dl RDW Std Deviation (36.4-46.3) fL Plt Count (182-369) K/mm3 MPV (9.4-12.3) fl Neut % (Auto) (34.0-71.1) % Lymph % (Auto) (19.3-51.7) % [place] % (Auto) (4.7-12.5) % Eos % (Auto) (0.7-5.8) Baso % (Auto) (0.1-1.2) % Neut # (Auto) (1.56-6.13) K/mm3 Lymph # (Auto) (1.18-3.74) K/mm3 [place] # (Auto) (0.24-0.36) K/mm3 Eos # (Auto) (0.04-0.36) K/mm3 Baso # (Auto) (0.01-0.08) K/mm3 Sodium (136-145) mEq/L Potassium (3.5-5.1) mEq/L Chloride (98-107) mEq/L Carbon Dioxide (21-32) mEq/L Anion Gap (5-15) BUN (7-18) mg/dL Creatinine (0.55-1.02) mg/dL Est Cr Clr Drug Dosing mL/min Estimated GFR (MDRD) (>60) mL/min BUN/Creatinine Ratio (14-18) Glucose (74-106) mg/dL Calcium (8.5-10.1) mg/dL Total Bilirubin (0.2-1.0) mg/dL AST (15-37) U/L ALT (14-59) U/L Alkaline Phosphatase (46-116) U/L Total Protein (6.4-8.2) g/dl Albumin (3.4-5.0) g/dl Globulin gm/dL Albumin/Globulin Ratio (1-2) Urine Color (Yellow) Urine Appearance (Clear) Urine pH (5.0-8.0) Ur Specific [place] (1.005-1.030) Urine Protein (Negative) Urine Glucose (UA) (Negative) Urine Ketones (Negative) Urine Occult Blood (Negative) Urine Nitrite (Negative) Urine Bilirubin (Negative) Urine Urobilinogen (0.2-1.0) Ur Leukocyte Esterase (Negative) Urine RBC (0-5) /hpf Urine WBC (0-5) /hpf Ur Squamous Epith Cells (0-5) /hpf Urine Bacteria (FEW) /hpf Urine Mucus (FEW) /hpf Urine HCG, Qual Negative (NEGATIVE) Meds: Medications Generic Name Dose Route Start Last Admin Trade Name Freq PRN Reason Stop Dose Admin Influenza Virus Vaccine 1 each 02/26/19 18:52 Pharmacy To Dose - Influenza Vaccine IM 02/26/19 18:53 ONETIME ONE Discontinued Medications Generic Name Dose Route Start Last Admin Trade Name Carmella PRN Reason Stop Dose Admin Influenza Virus Vaccine 60 mcg 02/26/19 19:15 02/26/19 19:44 Fluzone Quad [id number] Syringe IM 02/26/19 19:16 60 mcg .ONCE ONE Administration - Re-Assessments/Exams Free Text/Narrative Re-Assessment/Exam: 02/26/19 19:16 Patient presents to the ED for the evaluation of prolonged vaginal bleeding. A UA, urine hCG, CBC and CMP have also been ordered for evaluation. Likely this is d/t some sort of hormonal imbalance is dysfunctional uterine bleeding. Will place on Provera pending normal labs and have her follow up with her primary care or VP TREASURER of choice. 02/26/19 20:32 Patient's laboratory evaluation is done, there are no abnormalities noted on the CBC or metabolic panel, her urinalysis is slightly suggestive of a UTI with positive nitrites, but it is contaminated with blood from her menses and squamous epithelial cells. I did send this for culture for confirmation, she will be called if she needs antibiotics for a UTI. Of note she does not complain of any dysuria, urinary frequency or urgency at this visit. Departure - Departure Time of Disposition: 20:34 Disposition: Home, Self-Care 01 Condition: Fair Clinical Impression: Dysfunctional uterine bleeding - Discharge Information *PRESCRIPTION DRUG MONITORING PROGRAM REVIEWED*: No *COPY OF PRESCRIPTION DRUG MONITORING REPORT IN PATIENT NELI: No Instructions: Dysfunctional Uterine Bleeding Referrals: Tyrese Ruffin MD [Primary Care Provider] - Forms: ED Department Discharge Additional Instructions: You were evaluated in the ER today regarding your prolonged vaginal bleeding. Your laboratory evaluation was essentially within normal limits, your urinalysis was suggestive of a possible UTI, however as your on your menses, there is some slight contamination with blood and other skin cells, this urine was sent for culture, and you'll be called if you should require the need for an antibiotic. You has been prescribed a medication called Provera, please take one tab daily for the next 10 days, this should help stop the vaginal bleeding. Recommend that you follow up with your primary care physician or an VP TREASURER of choice in [place] for an ER follow-up after the Provera is done. Recommend that you get yourself on some sort of control to help regulate your cycle. Please return to the ED if your symptoms should change or worsen. - My Orders Last 24 Hours: My Active Orders 02/26/19 18:52 Pharmacy to Dose - InFluenza V [Pharmacy to Dose - InFluenza Vaccine] 1 each IM ONETIME ONE 02/26/19 18:53 Influenza Vaccine Charge [RC] .DISCHARGE 02/26/19 20:15 CULTURE URINE [RM] Stat - Assessment/Plan Last 24 Hours: My Active Orders 02/26/19 18:52 Pharmacy to Dose - InFluenza V [Pharmacy to Dose - InFluenza Vaccine] 1 each IM ONETIME ONE 02/26/19 18:53 Influenza Vaccine Charge [RC] .DISCHARGE 02/26/19 20:15 CULTURE URINE [RM] Stat
[2019-02-26] MEDS ORDERED: FLU Vacc QS2019-20(6MOS+)/PF 60 MCG/0.5 ML SYRINGE IM ONE (19:15)
== END 2019-02-26 20:50 | disposition home or self-care (01) ==
LOC: JD.ED 18:38
DX: N93.8 Other specified abnormal uterine and vaginal bleeding (principal); E66.9 Obesity, unspecified; Z68.37 Body mass index [BMI] 37.0-37.9, adult; Z23 Encounter for immunization
CPT/HCPCS: 36415; 80053; 81001; 81025; 85025; 87086; 87088; 87186; 90686; 99284-25; G0008

== ENCOUNTER 2020-09-02 02:12 | Inpatient (IN) | payer OTHER ==
--- NOTE | 2020-09-01 20:04 | PCM.LDHP ---
L&D History of Present Illness - General Date of Service: 09/01/20 Admit Problem/Dx: Admission Diagnosis/Problem Admission Diagnosis/Problem 09/01/20 19:51 Clara is a 25 year old white female 38-1/7 weeks gestational age with an NIALL of 09/15/2020 who is scheduled to be admitted on the a.m. of 09/02/2020 for medical induction of labor due to hypertension in . Source of Information: Patient History Limitations: Reports: No Limitations - History of Present Illness Introduction:: Clara is a 25 year old white female 38-1/7 weeks gestational age with an NIALL of 09/15/2020 who is scheduled to be admitted on the a.m. of 09/02/2020 for medical induction of labor due to hypertension in . The procedure of induction, its risks, benefits and alternatives are discussed in detail with the patient. She appears understand and wishes to proceed. 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 She had menarche at age approximately [age]. Her LMP was fairly certain. No control being used at the time of conception. Her previous obstetric delivery includes the followin. Male infant born 07/10[birth year]2018 at 38-1/7 weeks gestational age after 12 hours of labor. Baby was 8 pounds 15 ounces and was born via . She had an epidural for labor analgesia. She delivered at [facility]. Child's name is Nick. course: The patient's first visit was on 03/19/2020. That time ultrasound showed a consistent with an NIALL of 09/15/2020 as determined by a certain last menstrual period starting 12/10/2019 and further supported by numerous ultrasounds during the course of the . Patient has history of hypertension in and is presently on labetalol 100 mg p.o. every 12 hours for this. She has been evaluated on a regular basis throughout the with weekly biophysical profiles which have all returned reassuring. She has shown a normal growth interval as per ultrasound evaluation. Her vital signs have been very stable during the course of the on medications. The course of the was from 245 pounds to 256 pounds. Vital signs were stable throughout the . Fundal height growth was appropriate. On last ultrasound evaluation the estimated weight was at the 77th percentile. Patient is rubella immune. She has had her influenza immunization on 03/19/2020 and her Tdap on 08/27/2020. Patient desires epidural in labor delivery. She has a history of preeclampsia. COVID-19 infection February 2020symptomatology resolved. Patient plans to breast-feed. labs: Blood is a positive with a negative antibody screen. First hemoglobin is 13.2 g/dL. Platelets at that time were 394,000. She is rubella immune. RPR is nonreactive. Patient had Streptococcus mitis/Reyna on first urine culture. Her group B strep screen however was negative. Hepatitis B surface antigen and HIV assays were negative as were her chlamydia and gonorrhea tests. TSH on 08/13/2020 was 1.696 milliunits/mL. Second trimester labs showed a hemoglobin of 10.4 g/dL and patient was started on iron supplem entation with ferrous sulfate 3 and 25 mg/day. She is also started on vitamin C to improve iron absorption at that time. Platelet counts at second trimester 354,000 and her 1 hour glucose was elevated at 175. Her 3-hour glucose was also elevated with a fasting glucose of 107, a 1 hour glucose of 227, 2-hour glucose 191 and a 3-hour glucose of 142. Patient was started on glucose checks and even tually started on Metformin 500 mg in the extended release form twice daily which controlled her blood sugars reasonably well. She is group B strep negative. Allergies: None Medications: 1. Metformin 500 mg p.o. 2 times per day 2. Recently treated with Macrobid 1 p.o. twice daily x7 days 3. Ferrous sulfate 325 mg p.o. daily 4. Vitamin C 1000 mg orally daily 5. Baby aspirin 81 mg/day started prior to 16 weeks 5. Calcium 600 mg p.o. daily 7. Labetalol HCl 100 mg p.o. every 12 hours 8. Ondansetron 4 mg disintegrating tablets every 6 hours as needed for nausea 9. vitamins 1 daily Past medical history: 1. Abnormal Pap smear with resultant colposcopy x2 2. Endometriosis history 3. 07/10/2018. 4. Hypertension in 5. Gestational diabetes Past surgical history: 1. Breast reduction surgery 2015 Social history: Patient is . is Miko. She lives in [place], [place]. She is a [id number] mom. She does not use any significant amounts of alcohol, drugs or tobacco. Family history: Mother has lymphoma which has involved her reproductive organs. Father with history of hypertension. Brother with bone marrow transplant secondary to leukemia and. 3 siblings otherwise in total with the other 2 healthy. Maternal grandmother healthy. Maternal grandfather at age 85 from dementia. Paternal grandmother with diabetes when she was 77 years old. She also has a history of fractures, blood vessel disease and high blood pressure. Paternal grandfather deceasedcause unknown. No anesthesia history of bleeding, blood clotting, history otherwise. Review of systems: Review of systems: In general patient has no complaints. He has been active. Skin: Negative Lungs: No infectious symptoms or shortness of breath Cardiovascular: No chest pain or exercise intolerance Breasts: No lumps, changes in size, pain, dimpling, discharge or axillary or supraclavicular concerns. GI: Negative : Changes associated with Musculoskeletal: Negative Neurological: Negative Physical exam: In general the patient is well-developed, well-nourished, pleasant female of stated age in no acute distress. Skin is warm dry without lesions. HEENT, neck and back within normal limits. Lungs are clear with good breath sounds in all lung springer. Cardiovascular exam shows regular and rhythm without murmurs. Breast exam done at first annual visit was unremarkable and is not repeated at this time. Patient plans to breast-feed. Abdomen is with last fundal height in clinic at 38+ centimeters with baby in vertex presentation.. Genital per digital exam shows cervix to be 2+ centimeters, 90% effaced, very soft, posterior, -2 station. Extremities and neurological exam are grossly within normal limits. - Related Data Allergies/Adverse Reactions: Allergies Allergy/AdvReac Type Severity Reaction Status Date / Time No Known Allergies Allergy Verified 08/13/20 13:32 Home Medications: Home Meds Aspirin 1 tab PO DAILY 08/13/20 [History] Calcium Carbonate [Calcium] 1 tab PO DAILY 08/13/20 [History] Ferrous Sulfate [Iron] 325 mg PO DAILY 08/13/20 [History] Labetalol [Normodyne] 1 tab PO BID 08/13/20 [History] Vits #93/Iron Fum/FA [ Formula Tablet] 1 tab PO DAILY 08/13/20 [History] Past Medical History HEENT History: Reports: None Gastrointestinal History: Reports: GERD Other Gastrointestinal History: heartburn during Genitourinary History: Reports: UTI, Recurrent MANAGER CUSTOMER History: Reports: Endometriosis, Neurological History: Reports: Migraines Endocrine/Metabolic History: Reports: Obesity/BMI 30+ Hematologic History: Reports: Anemia Other Hematologic History: during - Infectious Disease History Infectious Disease History: Reports: Human Papilloma Virus (HPV) - Past Surgical History HEENT Surgical History: Reports: Oral Surgery Female Surgical History: Reports: Breast Reduction Social & Family History - Family History Family Medical History: No Pertinent Family History Cardiac: Reports: Hypertension - Caffeine Use Caffeine Use: Reports: Coffee, Soda - Living Situation & Occupation Living situation: Reports: , with Spouse H&P Review of Systems - Review of Systems: Review Of Systems: See Below L&D Exam - Exam Exam: See Below - Problem List (1) Hypertension affecting in third trimester SNOMED Code(s): 39795028166538, 57932656759168 ICD Code: O16.3 - UNSPECIFIED MATERNAL HYPERTENSION, THIRD TRIMESTER Status: Acute (2) Gestational diabetes mellitus (GDM) SNOMED Code(s): 64616516 ICD Code: O24.419 - GESTATIONAL DIABETES MELLITUS IN , UNSP CONTROL Status: Acute (3) 38 weeks gestation of SNOMED Code(s): 21793872 ICD Code: Z3A.38 - 38 WEEKS GESTATION OF Status: Acute Problem List Initiated/Reviewed/Updated: Yes Assessment/Plan Comment:: 1Shena Elizabeth is a 25 year old white female 38-1/7 weeks gestational age with an NIALL of 09/15/2020 who is scheduled to be admitted on the a.m. of 09/02/2020 for medical induction of labor due to hypertension in . 2. Group B strep negative 3. Risk factors for include hypertension , gestational diabetes, obesity, history of preeclampsia with previous . 4. Patient plans to breast-feed. 5. Patient had Covid19 February 2020 with no residual symptomatology 6. Patient desires epidural in labor and delivery for labor analgesia. Plan: 1. Induction of labor with Pitocin and possible AROM if head is well applied to the cervix at the time of admission 2. Epidural as needed for labor analgesia 3. Support breast-feeding decision 4. Continue on labetalol until delivery 5. Admission laboratory testing consist of Covid19, CBC, RPR 6. Routine labor monitoring.
[2020-09-02] MEDS ORDERED: Ondansetron 4 MG/2 ML SDV IVPUSH PRN (08:12)
[2020-09-02] MEDS ORDERED: Nalbuphine 10 MG/1 ML Vial IVPUSH PRN (08:12)
[2020-09-02] MEDS ORDERED: Sodium Chloride 0.9% 10 ML Syringe FLUSH PRN (08:12)
[2020-09-02] MEDS ORDERED: Oxytocin/Lactated Ringers 10 UNIT/1,000 ML BAG IV SCH ×2 (08:15)
[2020-09-02] MEDS: Lactated Ringers 1,000 ML IV SCH ×2 (08:48→19:28)
[2020-09-02] MEDS ORDERED: Oxytocin/Lactated Ringers 20 UNIT/1,000 ML BAG IV SCH (12:45)
[2020-09-02] MEDS ORDERED: diphenhydrAMINE 50 MG/ML SDV IVPUSH PRN (15:35)
[2020-09-02] MEDS ORDERED: fentaNYL 100 MCG/2 ML SDV EPIDUR PRN (15:35)
[2020-09-02] MEDS ORDERED: ePHEDrine 50 MG/ML SDV IVPUSH PRN (15:35)
[2020-09-02] MEDS ORDERED: Bupivacaine/fentaNYL/NS 100 ML Bag EPIDUR PRN (15:35)
--- NOTE | 2020-09-02 20:20 | PCM.PREANE ---
Preanesthetic Assessment - Procedure Proposed Procedure: veronica - Anesthesia/Transfusion/Family Hx Anesthesia History: Prior Anesthesia Without Reaction Family History of Anesthesia Reaction: No Transfusion History: No Prior Transfusion(s) - Review of Systems General: No Symptoms Pulmonary: No Symptoms Cardiovascular: No Symptoms Gastrointestinal: No Symptoms Neurological: No Symptoms Other: Reports: None - Physical Assessment Vital Signs: Last Vital Signs Temp 99.3 F 09/02/20 10:00 Pulse 113 H 09/02/20 10:00 Resp 16 09/02/20 10:00 BP 130/75 09/02/20 10:00 Pulse Ox 98 09/02/20 10:00 Height: 5 ft 7 in Weight: 115.938 kg ASA Class: 2 Mental Status: Alert & Oriented x3 Airway Class: Mallampati = 1 Dentition: Reports: Normal Dentition Thyro-Mental Finger Breadths: 3 Mouth Opening Finger Breadths: 3 ROM/Head Extension: Full Lungs: Clear to Auscultation, Normal Respiratory Effort Cardiovascular: Regular Rate, Regular Rhythm - Lab Values: Laboratory Last Values WBC 10.27 K/mm3 (3.98-10.04) H 09/02/20 08:32 RBC 4.20 M/mm3 (3.98-5.22) 09/02/20 08:32 Hgb 10.9 gm/dl (11.2-15.7) L 09/02/20 08:32 Hct 34.8 % (34.1-44.9) 09/02/20 08:32 MCV 82.9 fl (79.4-94.8) 09/02/20 08:32 MCH 26.0 pg (25.6-32.2) 09/02/20 08:32 MCHC 31.3 g/dl (32.2-35.5) L 09/02/20 08:32 RDW Std Deviation 45.4 fL (36.4-46.3) 09/02/20 08:32 Plt Count 270 K/mm3 (182-369) 09/02/20 08:32 MPV 9.9 fl (9.4-12.3) 09/02/20 08:32 Neut % (Auto) 76.5 % (34.0-71.1) H 09/02/20 08:32 Lymph % (Auto) 16.7 % (19.3-51.7) L 09/02/20 08:32 [place] % (Auto) 6.0 % (4.7-12.5) 09/02/20 08:32 Eos % (Auto) 0.5 (0.7-5.8) L 09/02/20 08:32 Baso % (Auto) 0.2 % (0.1-1.2) 09/02/20 08:32 Neut # (Auto) 7.85 K/mm3 (1.56-6.13) H 09/02/20 08:32 Lymph # (Auto) 1.72 K/mm3 (1.18-3.74) 09/02/20 08:32 [place] # (Auto) 0.62 K/mm3 (0.24-0.36) H 09/02/20 08:32 Eos # (Auto) 0.05 K/mm3 (0.04-0.36) 09/02/20 08:32 Baso # (Auto) 0.02 K/mm3 (0.01-0.08) 09/02/20 08:32 POC Glucose 160 mg/dL (70-99) H 09/02/20 10:22 SARS-CoV-2 RNA (SAM) Positive (NEGATIVE) H 09/02/20 07:35 - Allergies Allergies/Adverse Reactions: Allergies Allergy/AdvReac Type Severity Reaction Status Date / Time No Known Allergies Allergy Verified 09/02/20 08:11 - Blood Blood Available: No - Acknowledgements Anesthesia Type Planned: Epidural Pt an Appropriate Candidate for the Planned Anesthesia: Yes Alternatives and Risks of Anesthesia Discussed w Pt/Guardian: Yes Pt/Guardian Understands and Agrees with Anesthesia Plan: Yes PreAnesthesia Questionnaire HEENT History: Reports: None Cardiovascular History: Reports: Hypertension (with ) Respiratory History: Reports: None Gastrointestinal History: Reports: GERD Other Gastrointestinal History: heartburn during Genitourinary History: Reports: UTI, Recurrent 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: Endometriosis, : 2 (38 weeks) Para: 1 Neurological History: Reports: Migraines Endocrine/Metabolic History: Reports: Diabetes, Gestational, Obesity/BMI 30+ Hematologic History: Reports: Anemia Other Hematologic History: during - Infectious Disease History Infectious Disease History: Reports: Human Papilloma Virus (HPV) - Past Surgical History HEENT Surgical History: Reports: Oral Surgery Female Surgical History: Reports: Breast Reduction - SUBSTANCE USE Tobacco Use Status *Q: Never Tobacco User Tobacco Use Within Last Twelve Months: No Second Hand Smoke Exposure: No Days Per Week of Alcohol Use: 0 Recreational Drug Use History: No - HOME MEDS Home Medications: Home Meds Aspirin 1 tab PO DAILY 08/13/20 [History] Calcium Carbonate [Calcium] 1 tab PO DAILY 08/13/20 [History] Ferrous Sulfate [Iron] 325 mg PO DAILY 08/13/20 [History] Labetalol [Normodyne] 1 tab PO BID 08/13/20 [History] Vits #93/Iron Fum/FA [ Formula Tablet] 1 tab PO DAILY 08/13/20 [History] - CURRENT (IN HOUSE) MEDS Current Meds: Current Medications Diphenhydramine HCl (Diphenhydramine 50 Mg/Ml Sdv) 25 mg IVPUSH Q6H PRN PRN Reason: pruritis Ephedrine Sulfate (Ephedrine 50 Mg/Ml Sdv) 5 mg IVPUSH ASDIRECTED PRN PRN Reason: Hypotension Fentanyl (Fentanyl 100 Mcg/2 Ml Sdv) 100 mcg EPIDUR Q3H PRN PRN Reason: Pain Last Admin: 09/02/20 19:58 Dose: 100 mcg Documented by: Fentanyl/Bupivacaine HCl (Bupivacaine/Fentanyl/Ns 100 Ml Bag) 100 ml EPIDUR ASDIRECTED PRN PRN Reason: Pain Last Admin: 09/02/20 19:58 Dose: 100 ml Documented by: Oxytocin/Lactated Ringer's (Pitocin In Lr 10 Units/1,000 Ml) 10 unit in 1,000 mls @ 12 mls/hr IV TITRATE ANEUDY; Protocol Last Titration: 09/02/20 12:30 Dose: 20 munits/min, 120 mls/hr Documented by: Oxytocin/Lactated Ringer's (Pitocin In Lr 10 Units/1,000 Ml) 10 unit in 1,000 mls @ 500 mls/hr IV .CONTINUOUS ANEUDY Lactated Ringer's (Ringers, Lactated) 1,000 mls @ 100 mls/hr IV ASDIRECTED ANEUDY Last Admin: 09/02/20 19:28 Dose: 100 mls/hr Documented by: Oxytocin/Lactated Ringer's (Pitocin In Lr 20 Units/1,000 Ml) 20 unit in 1,000 mls @ 66 mls/hr IV TITRATE ANEUDY; Protocol Last Admin: 09/02/20 13:51 Dose: 66 mls/hr Documented by: Nalbuphine HCl (Nalbuphine 10 Mg/1 Ml Vial) 10 mg IVPUSH Q2H PRN PRN Reason: Pain Ondansetron HCl (Ondansetron 4 Mg/2 Ml Sdv) 4 mg IVPUSH Q4H PRN PRN Reason: Nausea/Vomiting Sodium Chloride (Sodium Chloride 0.9% 10 Ml Syringe) 10 ml FLUSH ASDIRECTED PRN PRN Reason: Keep Vein Open
[2020-09-03] MEDS ORDERED: Bupivacaine 0.25% 10 ML SDV ONE
[2020-09-03] MEDS: Lactated Ringers 1,000 ML IV SCH (00:02)
[2020-09-03] MEDS ORDERED: Oxytocin 10 Units/1 ML SDV ONE (02:09)
[2020-09-03] MEDS ORDERED: Benzocaine/Menthol 20%-0.5% Spray 56 GM Canister TOP PRN (02:44)
[2020-09-03] MEDS ORDERED: Witch Hazel Medicated Pads 40/Jar TOP PRN (02:44)
[2020-09-03] MEDS ORDERED: Docusate Sodium 100 MG Cap PO PRN (02:44)
[2020-09-03] MEDS ORDERED: Acetaminophen 325 MG Tab PO PRN (02:44)
--- NOTE | 2020-09-03 02:49 | PCM.SN.2 ---
- Free Text/Narrative Note: Delivery note: Stage I: Clara is a 25 year old G2 now para 2-0-0-2 white female 38-1/7 weeks gestational age with an NIALL of 09/15/2020 who is scheduled to be admitted on the a.m. of 09/02/2020 for medical induction of labor due to hypertension in . The procedure, risk, benefits, limitations and follow-up were discussed in detail and patient appeared to understand and wished to proceed. Because of the station of the presenting part patient underwent Pitocin induction of labor. She has slow but steady progression of labor to approximately 3 cm at which time AROM was accomplished with resultant clear amniotic fluid. Epidural was placed for labor analgesia. She progressed to complete cervical dilation by approximately 0200 hrs on 09/03/2020. Stage II: Patient delivered a viable, zarate, female with Apgars of 8 and 9, a length of 20.0 inches, a weight of 3630 g (8 pounds 0 ounces) in a d irect occiput anterior position. Baby's shoulders delivered with gentle downward and upward pressure and the baby was placed on mom's abdomen. Baby was dried with warm blanket and nose and mouth were bulb suctioned. The umbilical cord was allowed to pulsate for 3 minutes then was clamped x2 and cut by the baby's father. Pitocin per IV was increased to 500 cc an hour with the standard concentration. This to facilitate increase in uterine tone and decrease likelihood of bleeding. Cord blood was obtained Stage III: The placenta delivered at 0216 hrs. in a Schultze presentation. It appeared intact and complete and was discarded per patient desire. The umbilical cord had 3 vessels. Estimated blood loss was 200 cc. No lacerations were incurred during the course of the delivery. Epidural catheter was removed without problems. Patient plans to breast-feed. Condition: Good
[2020-09-03] MEDS ORDERED: Oxytocin/Lactated Ringers 20 UNIT/1,000 ML BAG IV SCH (03:15)
[2020-09-03] MEDS: Ibuprofen 600 MG Tab PO PRN ×3 (03:52→17:47)
--- NOTE | 2020-09-03 07:25 | PCM.SN.2 ---
- Free Text/Narrative Note: note: Day of delivery. Patient is doing well in the period. Minimal lochia, voiding well, ambulated without problems. Nursing without concerns. Patient is afebrile, vital signs are stable Abdomen is flat, soft, uterus is below the umbilicus and is firm and nontender. Legs are nontender. Assessment: 1. Day of delivery doing well- recovery going well. 2. Hypertension . Blood pressures have been normal at this point will monitor Plan: Routine care. Patient be discharged home within the next 24-48 hours.
--- NOTE | 2020-09-03 07:30 | PCM48HPAN ---
Post Anesthesia Note - EVALUATION WITHIN 48HRS OF ANESTHETIC Vital Signs in Normal Range: Yes Patient Participated in Evaluation: Yes Respiratory Function Stable: Yes Airway Patent: Yes Cardiovascular Function Stable: Yes Hydration Status Stable: Yes Pain Control Satisfactory: Yes Nausea and Vomiting Control Satisfactory: Yes Mental Status Recovered: Yes Vital Signs: Last Vital Signs Temp 37.4 C 09/02/20 10:00 Pulse 113 H 09/02/20 10:00 Resp 16 09/02/20 10:00 BP 130/75 09/02/20 10:00 Pulse Ox 98 09/02/20 10:00
[2020-09-03] MEDS: Prenatal Multivitamin with Calcium/Folic Acid/Iron Tab PO SCH (08:40)
[2020-09-04] MEDS: Prenatal Multivitamin with Calcium/Folic Acid/Iron Tab PO SCH (09:23)
--- NOTE | 2020-09-04 10:45 | PCM.DCSUM1 ---
Discharge Summary - Hospital Course Free Text/Narrative:: Stage I: Clara is a 25 year old G2 now para 2-0-0-2 white female 38-1/7 weeks gestational age with an NIALL of 09/15/2020 who is scheduled to be admitted on the a.m. of 09/02/2020 for medical induction of labor due to hypertension in . The procedure, risk, benefits, limitations and follow-up were discussed in detail and patient appeared to understand and wished to proceed. Because of the station of the presenting part patient underwent Pitocin induction of labor. She has slow but steady progression of labor to approximately 3 cm at which time AROM was accomplished with resultant clear amniotic fluid. Epidural was placed for labor analgesia. She progressed to complete cervical dilation by approximately 0200 hrs on 09/03/2020. Stage II: Patient delivered a viable, zarate, female with Apgars of 8 and 9, a length of 20.0 inches, a weight of 3630 g (8 pounds 0 ounces) in a direct occiput anterior position. Baby's shoulders delivered with gentle downward and upward pressure and the baby was placed on mom's abdomen. Baby was dried with warm blanket and nose and mouth were bulb suctioned. The umbilical cord was allowed to pulsate for 3 minutes then was clamped x2 and cut by the baby's father. Pitocin per IV was increased to 500 cc an hour with the standard concentration. This to facilitate increase in uterine tone and decrease likelihood of bleeding. Cord blood was obtained Stage III: The placenta delivered at 0216 hrs. in a Schultze presentation. It appeared intact and complete and was discarded per patient desire. The umbilical cord had 3 vessels. Estimated blood loss was 200 cc. No lacerations were incurred during the course of the delivery. Epidural catheter was removed without problems. Patient plans to breast-feed. patient has done well. She is ambulating well. Her vital signs are stable including blood pressure which is very normal. She has not been restarted on labetalol after delivery. Lochia is minimal. She is ambulating well. She is nursing without problems. She is desiring discharge home. Condition: Good Diagnosis: Stroke: No - Discharge Data Discharge Date: 09/04/20 Discharge Disposition: Home, Self-Care 01 Condition: Good - Referral to Home Health Primary Care Physician: Tyrese Ruffin MD - Discharge Diagnosis/Problem(s) (1) Hypertension affecting in third trimester SNOMED Code(s): 09377619409771, [id number] ICD Code: O16.3 - UNSPECIFIED MATERNAL HYPERTENSION, THIRD TRIMESTER Status: Acute Current Visit: No (2) Gestational diabetes mellitus (GDM) SNOMED Code(s): 70340172 ICD Code: O24.419 - GESTATIONAL DIABETES MELLITUS IN , UNSP CONTROL Status: Acute Current Visit: No (3) 38 weeks gestation of SNOMED Code(s): 93544848 ICD Code: Z3A.38 - 38 WEEKS GESTATION OF Status: Acute Current Visit: No - Patient Instructions Diet: Regular Diet as Tolerated (Nursing diet with increased calories and calcium as recommended.) Activity: As Tolerated (No intercourse or tampons until bleeding resolves) Driving: May Drive Today Showering/Bathing: May Shower (May take a bath) Notify Provider of: Fever, Increased Pain, Swelling and Redness, Nausea and/or Vomiting - Discharge Plan Home Medications: Home Meds Calcium Carbonate [Calcium] 1 tab PO DAILY 08/13/20 [History] Ferrous Sulfate [Iron] 325 mg PO DAILY 08/13/20 [History] Vits #93/Iron Fum/FA [ Formula Tablet] 1 tab PO DAILY 08/13/20 [History] Acetaminophen [Tylenol] 650 mg PO Q4H PRN tablet 09/04/20 [Rx] Ibuprofen [Motrin] 600 mg PO Q4H PRN tablet 09/04/20 [Rx] Patient Handouts: and Self-Care, [id number], Care After Vaginal Delivery - Discharge Summary/Plan Comment DC Time >30 min.: No Discharge Summary/Plan Comment: Discharge instructions: 1. Discharge home 2. Diet, activity and follow-up discussed with patient. Recommend nursing diet with increased calories and calcium. 3. Precautions given concern increased pain, bleeding, temperature, signs/symptoms of DVT/PE. 4. Medications per home medication was printed, discussed with and given to the patient. 5. Patient will continue to blood pressures on a daily basis. She is to call if blood pressure gets greater than 150/100 on repeated rechecks. 6. Return to clinic-Dr. Ruffin-[facility] in 2 weeks. Diagnosis: Term -delivered Condition: Good - Patient Data Vitals - Most Recent: Last Vital Signs Temp 37.1 C 09/04/20 08:43 Pulse 91 09/04/20 08:43 Resp 16 09/04/20 08:43 BP 124/76 09/04/20 08:43 Pulse Ox 100 09/04/20 08:43 Weight - Most Recent: 115.938 kg Med Orders - Current: Current Medications Acetaminophen (Acetaminophen 325 Mg Tab) 650 mg PO Q4H PRN PRN Reason: mild pain or fever Last Admin: 09/03/20 05:15 Dose: 650 mg Documented by: Benzocaine/Menthol (Benzocaine/Menthol 20%-0.5% [place] 56 Gm Canister) 0 gm TOP ASDIRECTED PRN PRN Reason: Perineal Comfort Measure Last Admin: 09/03/20 03:52 Dose: 1 canister Documented by: Docusate Sodium (Docusate Sodium 100 Mg Cap) 100 mg PO BID PRN PRN Reason: Constipation Oxytocin/Lactated Ringer's (Pitocin In Lr 20 Units/1,000 Ml) 20 unit in 1,000 mls @ 500 mls/hr IV TITRATE ANEUDY; Protocol Ibuprofen (Ibuprofen 600 Mg Tab) 600 mg PO Q4H PRN PRN Reason: Mild pain or fever Last Admin: 09/03/20 17:47 Dose: 600 mg Documented by: Prenat Multivit/[place]/Iron/Folic Ac ( Multivitamin With Calcium/Folic Acid/Iron Tab) 1 each PO DAILY ANEUDY Last Admin: 09/04/20 09:23 Dose: Not Given Documented by: Alejandro Choi (Alejandro Choi Medicated Pads 40/Jar) 1 pad TOP ASDIRECTED PRN PRN Reason: Perineal Comfort Measure Last Admin: 09/03/20 03:51 Dose: 1 tub Documented by: Discontinued Medications Bupivacaine HCl (Bupivacaine 0.25% 10 Ml Sdv) 10 ml .ROUTE .STK-MED ONE Stop: 09/03/20 00:01 Diphenhydramine HCl (Diphenhydramine 50 Mg/Ml Sdv) 25 mg IVPUSH Q6H PRN PRN Reason: pruritis Ephedrine Sulfate (Ephedrine 50 Mg/Ml Sdv) 5 mg IVPUSH ASDIRECTED PRN PRN Reason: Hypotension Fentanyl (Fentanyl 100 Mcg/2 Ml Sdv) 100 mcg EPIDUR Q3H PRN PRN Reason: Pain Last Admin: 09/02/20 19:58 Dose: 100 mcg Documented by: Fentanyl/Bupivacaine HCl (Bupivacaine/Fentanyl/Ns 100 Ml Bag) 100 ml EPIDUR ASDIRECTED PRN PRN Reason: Pain Last Admin: 09/02/20 19:58 Dose: 100 ml Documented by: Oxytocin/Lactated Ringer's (Pitocin In Lr 10 Units/1,000 Ml) 10 unit in 1,000 mls @ 12 mls/hr IV TITRATE ANEUDY; Protocol Last Titration: 09/02/20 21:05 Dose: Infused Documented by: Oxytocin/Lactated Ringer's (Pitocin In Lr 10 Units/1,000 Ml) 10 unit in 1,000 mls @ 500 mls/hr IV .CONTINUOUS ANEUDY Last Admin: 09/03/20 03:55 Dose: 500 mls/hr Documented by: Lactated Ringer's (Ringers, Lactated) 1,000 mls @ 100 mls/hr IV ASDIRECTED ANEUDY Last Admin: 09/03/20 00:02 Dose: 100 mls/hr Documented by: Oxytocin/Lactated Ringer's (Pitocin In Lr 20 Units/1,000 Ml) 20 unit in 1,000 mls @ 66 mls/hr IV TITRATE ANEUDY; Protocol Last Admin: 09/02/20 13:51 Dose: 66 mls/hr Documented by: Nalbuphine HCl (Nalbuphine 10 Mg/1 Ml Vial) 10 mg IVPUSH Q2H PRN PRN Reason: Pain Ondansetron HCl (Ondansetron 4 Mg/2 Ml Sdv) 4 mg IVPUSH Q4H PRN PRN Reason: Nausea/Vomiting Oxytocin (Oxytocin 10 Units/1 Ml Sdv) Confirm Administered Dose 10 unit .ROUTE .ST-MED ONE Stop: 09/03/20 02:10 Last Admin: 09/03/20 02:15 Dose: 10 unit Documented by: Sodium Chloride (Sodium Chloride 0.9% 10 Ml Syringe) 10 ml FLUSH ASDIRECTED PRN PRN Reason: Keep Vein Open
== END 2020-09-04 11:08 | disposition home or self-care (01) | DRG 805 ==
LOC: JD.OB 02:12 → OBSVTOIN 09-03 02:12 → JD.OB 09-03 02:13
PROVIDERS: ADMIT Obstetrics & Gynecology; ATTEND Obstetrics & Gynecology
PROC: 10E0XZZ Delivery of Products of Conception, External Approach (ICD-10-PCS; principal; 2020-09-03)
PROC: 10907ZC Drainage of Amniotic Fluid, Therapeutic from Products of Conception, Via Natural or Artificial Opening (ICD-10-PCS; 2020-09-03)
PROC: 3E033VJ Introduction of Other Hormone into Peripheral Vein, Percutaneous Approach (ICD-10-PCS; 2020-09-03)
PROC: 3E0R3BZ Introduction of Anesthetic Agent into Spinal Canal, Percutaneous Approach (ICD-10-PCS; 2020-09-03)
PROC: 00HU33Z Insertion of Infusion Device into Spinal Canal, Percutaneous Approach (ICD-10-PCS; 2020-09-03)
DX: O16.3 Unspecified maternal hypertension, third trimester (principal); U07.1 COVID-19; Z37.0 Single live birth; O24.429 Gestational diabetes mellitus in childbirth, unspecified control; O99.62 Diseases of the digestive system complicating childbirth; K21.9 Gastro-esophageal reflux disease without esophagitis; O99.02 Anemia complicating childbirth; D64.9 Anemia, unspecified; Z3A.38 38 weeks gestation of pregnancy; Z86.16 Personal history of COVID-19
CPT/HCPCS: 01967; 36415; 51702; 59025; 59409; 82947; 85025; 86592; 86803; A9270-GY; J2590; J3010; J3490; J7120; U0002